=== PATIENT | female | born 1995 | race Caucasian/White ===

== ENCOUNTER 2023-03-15 19:04 | Emergency (ER) | payer OTHER ==
[~2023-03-15] VITALS: Ht 172.7 cm; Wt 63.5 kg
[2023-03-15 19:13] VITALS: BP 127/74; PULSE 81; RESP 16; TEMP 97; O2SAT 99
[2023-03-15] MEDS ORDERED: FAMOTIDINE 20 MG TAB PO ONE (19:35)
[2023-03-15] MEDS ORDERED: predniSONE 20 MG TAB PO ONE (19:35)
[2023-03-15] MEDS ORDERED: DIPH-915 PO (19:38)
[2023-03-15] MEDS ORDERED: PRED20TA5 PO (19:38)
[2023-03-15 20:18] VITALS: BP 127/74; PULSE 81; RESP 16; TEMP 97; O2SAT 99
== END 2023-03-15 20:18 | disposition home or self-care (01) ==
LOC: MED 19:04
DX: L50.9 Urticaria, unspecified (principal); Z79.899 Other long term (current) drug therapy
CPT/HCPCS: 99284; J7512; Q0163